=== PATIENT | female | born 1980 | race African-American/Black ===

== ENCOUNTER 2019-01-22 17:34 | Emergency (ER) | payer OTHER ==
[2019-01-22 18:03] VITALS: BP 119/76
[2019-01-22] MEDS ORDERED: ACETAMINOPHEN 325 MG TABLET PO ONE (19:11)
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
== END 2019-01-22 20:35 | disposition home or self-care (01) ==
LOC: ER 17:34
DX: S80.11XA Contusion of right lower leg, initial encounter (principal); R51 Headache; M25.561 Pain in right knee; M79.651 Pain in right thigh; V87.7XXA Person injured in collision between other specified motor vehicles (traffic), initial encounter
CPT/HCPCS: 99283